=== PATIENT | female | born 1995 | race Caucasian/White ===

== ENCOUNTER 2022-01-28 14:04 | Emergency (ER) | payer OTHER ==
[2022-01-28] MEDS ORDERED: Ketorolac Tromethamine 30 MG/ML VIAL ONE (15:03)
[2022-01-28] MEDS ORDERED: Acetaminophen 500 MG TAB ONE (15:03)
== END 2022-01-28 15:48 | disposition home or self-care (01) ==
LOC: CSHERS 14:04
DX: J02.9 Acute pharyngitis, unspecified (principal); B34.9 Viral infection, unspecified; Z20.822 Contact with and (suspected) exposure to COVID-19
CPT/HCPCS: 87081; 87430; 96372; 99284; J1885; U0003; U0005

== ENCOUNTER 2022-01-30 07:33 | Emergency (ER) | payer OTHER ==
[2022-01-30] MEDS ORDERED: Bicillin LA 1.2 MILLION UNITS/2 ML SYRINGE ONE (08:49)
== END 2022-01-30 09:05 | disposition home or self-care (01) ==
LOC: CSHERS 07:33
DX: J02.0 Streptococcal pharyngitis (principal); F17.210 Nicotine dependence, cigarettes, uncomplicated
CPT/HCPCS: 96372; 99283; J0561

== ENCOUNTER 2022-07-23 10:38 | Emergency (ER) | payer OTHER ==
[2022-07-23] MEDS ORDERED: Dicyclomine 20 MG/2 ML VIAL ONE (11:27)
[2022-07-23] MEDS ORDERED: Ondansetron PF 4 MG/2 ML Vial ONE (11:28)
[2022-07-23 11:36] LABS: #Eosinphils 0.3 10x3/uL (0.0-0.5); #Monocytes 0.5 10x3/uL (0.0-1.1); #Neutrophils 6.1 10x3/uL (1.5-8.4); %Basophils 0.3 % (0.0-2.0); %Eosinophils 3.6 % (0.0-6.0); %Lymphocytes 26.2 % (18.0-47.0); %Monocytes 5.6 % (0.0-10.0); %Neutrophils 64.1 % (40.0-75.0); Hemoglobin 15.1 g/dL (12.0-15.5); Mean Corpuscular HGB CONC 35.9 g/dL (32.0-36.0); Mean Corpuscular Hemoglobin 32.3 pg (27.0-33.0); Mean Platelet Volume 8.1 fl (7.4-10.4); Platelet Count 272 10x3/uL (150-450); RBC Distribution Width 12.6 % (11.5-14.5); Red Blood Cell (RBC) Count 4.68 10x6/uL (3.90-5.03); White Blood Cell (WBC) Count 9.5 10x3/uL (3.5-10.5)
[2022-07-23 11:43] LABS: BHCG - Serum Negative (NEGATIVE); Pregs Control Background? CLEAR/WHITE (CLR/WHITE); Pregs Control Bar Appear? YES (CONTROL BAR)
[2022-07-23 11:48] LABS: Bilirubin Neg (Negative); Blood, Urine 250 (Negative); Clarity Slightly Cloudy (Clear); Glucose, Urine (Dipstick) Normal (Negative); Ketone, Urine Negative (Negative); Leukocyte Negative (Negative); Nitrite Negative (Negative); Protein, Urine (Dipstick) 15 mg/dl (Neg-Trace); Urobilinogen Normal mg/dL (Less than 2)
[2022-07-23 11:56] LABS: ALT (SGPT) 19 U/L (8-55); AST (SGOT) 18 U/L (5-34); Alkaline Phosphatase 86 U/L (40-110); Anion Gap 16 mmol/L (10-20); BUN (Urea Nitrogen) 9 mg/dL (7.0-18.7); Bilirubin, Total 0.8 mg/dL (0.2-1.2); Calc. Creatinine Clearance 0 mL/min (70-130); Calcium 9.3 mg/dL (7.8-10.44); Carbon Dioxide 23 mmol/L (22-29); Chloride 103 mmol/L (98-107); Estimated GFR 100; Globulin 3.3 g/dL (2.4-3.5); Glucose 141 mg/dL (70-105); Lipase 22 U/L (8-78); Potassium 3.8 mmol/L (3.5-5.1); Protein, Total 7.3 g/dL (6.0-8.3); Sodium 138 mmol/L (136-145)
[2022-07-23 12:05] LABS: Bacteria/HPF 1+ HPF (None Seen); RBC/HPF 21-50 HPF (0-3); WBC/HPF 0-3 HPF (0-3)
[2022-07-23] MEDS ORDERED: Iopamidol 300 61% 100 ML VIAL FS ONE (15:19)
== END 2022-07-23 13:17 | disposition home or self-care (01) ==
LOC: CSHERS 10:38
DX: R10.9 Unspecified abdominal pain (principal); F17.210 Nicotine dependence, cigarettes, uncomplicated
CPT/HCPCS: 74177; 80053; 81003; 81015; 83605; 83690; 84703; 85025; 96361; 96374; J2405; Q9967